=== PATIENT | female | born 1925 | race Caucasian/White ===

== ENCOUNTER 2016-12-11 21:27 | Emergency (ER) | payer MEDICARE, BC ==
[2016-12-11 22:11] LABS: CHLORIDE,CL 92 mmol/L (101-111); SODIUM,NA 132 mmol/L (135-145)
[2016-12-11 22:57] VITALS: BP 167/60
--- NOTE | 2016-12-12 01:04 | EDM.PDOC ---
ED HPI NEURO - General Chief Complaint: Neuro Symptoms/Deficits Stated Complaint: BY AMBULANCE Time Seen by Provider: 12/11/16 21:35 Source of Information: Reports: EMS History Limitations: Reports: Altered mental status - History of Present Illness INITIAL COMMENTS - FREE TEXT/NARRATIVE: ED via [facility] from Assisted living. Reported to be unresponsive when staff went to give bedtime medications - Related Data Allergies/ADRs: Allergies Allergy/AdvReac Type Severity Reaction Status Date / Time amoxicillin trihydrate Allergy Nausea and Verified 11/06/16 14:35 [From Augmentin] Vomiting erythromycin base Allergy unkown Verified 11/06/16 14:35 [Erythromycin Base] fluocinonide Allergy unkown Verified 11/06/16 14:35 metformin Allergy Nausea and Verified 11/06/16 14:35 Vomiting Penicillins Allergy Nausea and Verified 11/06/16 14:35 Vomiting potassium clavulanate Allergy Nausea and Verified 11/06/16 14:35 [From Augmentin] Vomiting quinapril Allergy Cannot Verified 11/06/16 14:35 Remember rofecoxib Allergy unkown Verified 11/06/16 14:35 Sulfa (Sulfonamide Allergy Nausea and Verified 11/06/16 14:35 Antibiotics) Vomiting sulfamethoxazole Allergy Cannot Verified 11/06/16 14:35 [From Bactrim] Remember trimethoprim [From Bactrim] Allergy Cannot Verified 11/06/16 14:35 Remember Home Meds: Home Meds Nitroglycerin 0.4 mg SL ASDIRECTED PRN 10/10/13 [History] Rosuvastatin [Crestor] 20 mg PO DAILY 10/10/13 [History] Ubidecarenone [Coenzyme Q10] 200 mg PO DAILY 10/10/13 [History] Cranberry Extract [Cranberry] 500 mg PO DAILY 04/04/16 [History] Insulin Glarg,Human.Rec.Analog [LantUS Solostar] 10 units SUBCUT QAM 04/04/16 [ History] Ipratropium [place] 2 sprays NASBOTH DAILY 04/04/16 [History] Losartan Potassium 50 mg PO DAILY 04/04/16 [History] Metoprolol Succinate 150 mg PO DAILY 04/04/16 [History] Pantoprazole [Protonix] 40 mg PO DAILY 04/04/16 [History] SitaGLIPtin [Januvia] 100 mg PO DAILY 06/04/16 [History] glipiZIDE [Glucotrol XL] 10 mg PO DAILY 06/04/16 [History] Aspirin [Halfprin] 81 mg PO BRK 11/06/16 [History] Calcium Carb/Vitamin D3/Vit K1 [Viactiv Soft Chew] 1 tab PO DAILY 11/06/16 [ History] Donepezil [Aricept] 10 mg PO DAILY 11/06/16 [History] Loratadine [Claritin] 10 mg PO DAILY 11/06/16 [History] Furosemide [Lasix] 20 mg PO DAILY #30 tablet 11/08/16 [Rx] Levofloxacin 500 mg PO DAILY #7 tablet 11/08/16 [Rx] Potassium Chloride [Klor-Con 10] 20 meq PO WITHBREAKFAST #30 tab.er 11/08/16 [Rx ] Past Medical History HEENT History: Reports: Cataract Cardiovascular History: Reports: Automatic implantable cardioverter defibrillators, Bypass, CAD, High cholesterol, Hypertension Respiratory History: Reports: None Gastrointestinal History: Reports: GERD Other Gastrointestinal History: gallbladder removed Genitourinary History: Reports: UTI, recurrent [employer] History: Reports: None Musculoskeletal History: Reports: Arthritis Neurological History: Reports: None Psychiatric History: Reports: None, Dementia, Hallucinations Endocrine/Metabolic History: Reports: Diabetes, type II Hematologic History: Reports: Anemia Immunologic History: Reports: None Oncologic (Cancer) History: Reports: None Dermatologic History: Reports: None - Infectious Disease History Infectious Disease History: Reports: None - Past Surgical History Head Surgeries/Procedures: Reports: None Cardiovascular Surgical History: Reports: Coronary artery bypass, Pacer Social & Family History - Family History Family Medical History: Unobtainable - Tobacco Use Smoking Status *Q: Unknown Ever Smoked Second Hand Smoke Exposure: No - Caffeine Use Caffeine Use: Reports: Other Other Caffeine Use: unknown - Recreational Drug Use Recreational Drug Use: No - Living Situation & Occupation Living situation: Reports: assisted living ED ROS GENERAL - Review of Systems Review Of Systems: Unable To Obtain ED EXAM, NEURO - Physical Exam Exam: See Below Exam Limited By: No limitations General Appearance: lethargic (on arrival. squintling eyes against light. some resistance of patient while undressing.) Eye Exam: bilateral eye: EOMI, PERRL (2mm) Ears: normal external exam Nose: normal inspection Throat/Mouth: Normal inspection, Normal lips, Normal teeth, Perioral cyanosis Head Exam: normocephalic Neck: normal inspection Respiratory/Chest: no respiratory distress, lungs clear, normal breath sounds Cardiovascular: normal peripheral pulses, regular rate, rhythm, no edema GI/Abdominal: normal bowel sounds Neurological: withdraws to pain, other (breif peried decreased level of consciousness, few minutes increased arousal moving all extremities) Back Exam: normal inspection Extremities: normal inspection Skin Exam: Warm, Dry, Intact, Normal color, No rash Course - Vital Signs Last Recorded V/S: Last Vital Signs Temp 97.9 F 12/11/16 21:35 Pulse 66 12/11/16 21:35 Resp 18 12/11/16 21:35 BP 167/60 H 12/11/16 21:35 Pulse Ox 95 12/11/16 21:35 - Orders/Labs/Meds Orders: Active Orders 24 hr Category Date Time Status Glucose [Blood Glucose Check, Bedside] [RC] ONETIME Care 12/12/16 00:10 Active CULTURE BLOOD [BC] Stat Lab 12/11/16 21:40 Results CULTURE BLOOD [BC] Stat Lab 12/11/16 21:45 Received Blood Culture x2 Reflex Set [OM.PC] Stat Oth 12/11/16 21:38 Ordered Code Status [Resuscitation Status] Stat Resus Stat 12/12/16 04:00 Ordered Labs: Laboratory Tests 12/11/16 12/11/16 12/11/16 Range/Units 21:45 21:45 21:45 WBC 7.9 (5.0-10.0) 10^3/uL RBC 4.25 (4.2-5.4) 10^6/uL Hgb 11.6 L (12.0-16.0) g/dL Hct 35.2 L (37.0-47.0) % MCV 82.8 (80-100) fL MCH 27.3 (27.0-34.0) pg MCHC 33.0 (33.0-35.0) g/dL Plt Count 196 (150-450) 10^3/uL Neut % (Auto) 70.1 (42.2-75.2) % Lymph % (Auto) 14.1 L (20.5-50.1) % Nelson % (Auto) 12.4 H (2-8) % Eos % (Auto) 2.9 (1.0-3.0) % Baso % (Auto) 0.5 (0.0-1.0) % Sodium 132 L (135-145) mmol/L Potassium 4.6 (3.6-5.0) mmol/L Chloride 92 L (101-111) mmol/L Carbon Dioxide 32.0 H (21.0-31.0) mmol/L Anion Gap 12.6 BUN 28 H (7-18) mg/dL Creatinine 0.8 (0.6-1.3) mg/dL Est Cr Clr Drug Dosing TNP Estimated GFR (MDRD) > 60 BUN/Creatinine Ratio 35.00 Glucose 246 H (74-105) mg/dL POC Glucose (83-110) mg/dl Lactic Acid 1.6 (0.5-2.2) mmol/L Calcium 9.0 (8.4-10.2) mg/dl Magnesium 2.1 (1.8-2.5) mg/dL Total Bilirubin 0.5 (0.2-1.0) mg/dL AST 22 (10-42) IU/L ALT 17 (10-60) IU/L Alkaline Phosphatase 70 (42-121) IU/L Troponin I < 0.02 (0.00-0.02) ng/ml B-Natriuretic Peptide 458 H (0-100) pg/ml Total Protein 7.0 (6.7-8.2) g/dl Albumin 3.7 (3.2-5.5) g/dl Globulin 3.3 Albumin/Globulin Ratio 1.12 Urine Color (YELLOW) Urine Appearance (CLEAR) Urine pH (5.0-9.0) Ur Specific [place] (1.005-1.030) Urine Protein (NEGATIVE) Urine Glucose (UA) (NEGATIVE) Urine Ketones (NEGATIVE) Urine Occult Blood (NEGATIVE) Urine Nitrite (NEGATIVE) Urine Bilirubin (NEGATIVE) Urine Urobilinogen (0.2-1.0) mg/dL Ur Leukocyte Esterase (NEGATIVE) Urine RBC /HPF Urine WBC (0-5/HPF) /HPF Ur Epithelial Cells /HPF Urine Bacteria (0-FEW/HPF) /HPF Urine Mucus /LPF Ketones Negative 12/11/16 12/12/16 Range/Units 22:37 00:21 WBC (5.0-10.0) 10^3/uL RBC (4.2-5.4) 10^6/uL Hgb (12.0-16.0) g/dL Hct (37.0-47.0) % MCV (80-100) fL MCH (27.0-34.0) pg MCHC (33.0-35.0) g/dL Plt Count (150-450) 10^3/uL Neut % (Auto) (42.2-75.2) % Lymph % (Auto) (20.5-50.1) % Nelson % (Auto) (2-8) % Eos % (Auto) (1.0-3.0) % Baso % (Auto) (0.0-1.0) % Sodium (135-145) mmol/L Potassium (3.6-5.0) mmol/L Chloride (101-111) mmol/L Carbon Dioxide (21.0-31.0) mmol/L Anion Gap BUN (7-18) mg/dL Creatinine (0.6-1.3) mg/dL Est Cr Clr Drug Dosing Estimated GFR (MDRD) BUN/Creatinine Ratio Glucose (74-105) mg/dL POC Glucose 192 H (83-110) mg/dl Lactic Acid (0.5-2.2) mmol/L Calcium (8.4-10.2) mg/dl Magnesium (1.8-2.5) mg/dL Total Bilirubin (0.2-1.0) mg/dL AST (10-42) IU/L ALT (10-60) IU/L Alkaline Phosphatase (42-121) IU/L Troponin I (0.00-0.02) ng/ml B-Natriuretic Peptide (0-100) pg/ml Total Protein (6.7-8.2) g/dl Albumin (3.2-5.5) g/dl Globulin Albumin/Globulin Ratio Urine Color Yellow (YELLOW) Urine Appearance Clear (CLEAR) Urine pH 5.5 (5.0-9.0) Ur Specific [place] 1.015 (1.005-1.030) Urine Protein Negative (NEGATIVE) Urine Glucose (UA) 100 H (NEGATIVE) Urine Ketones Negative (NEGATIVE) Urine Occult Blood Trace-intact H (NEGATIVE) Urine Nitrite Negative (NEGATIVE) Urine Bilirubin Negative (NEGATIVE) Urine Urobilinogen 0.2 (0.2-1.0) mg/dL Ur Leukocyte Esterase Negative (NEGATIVE) Urine RBC 0-5 /HPF Urine WBC 0-5 (0-5/HPF) /HPF Ur Epithelial Cells Rare /HPF Urine Bacteria Rare (0-FEW/HPF) /HPF Urine Mucus Moderate H /LPF Ketones - Re-Assessments/Exams Free Text/Narrative Re-Assessment/Exam: increasing arousal during initial evaluation. Moving all extremities, equal strength. Speech clear. Some responses appropriate. Generally cooperative, able to follow command but confused. Vitals remain stable . 12/12/16 04:01 Daughter here desire to take mother home , Will follow up in clinic , verbal understanding to follow sooner if any changes noted. Daughter notes patient is usually in bed sleeping soundly by 7pm and tonUsersnap meds were being brought after 830. Level of confusion usual for patient this time of night and in different environments. Code status discussed with daughter. Requests DNR/ DNI status be noted. Discussed recommendation for neuro consult. Daughter declines transfer tonight, wants to take patient home, Will return if any change in sx also will follow with clinic on Tuesday. 12/12/16 07:03 Departure - Departure Time of Disposition: 03:19 Disposition: Home, Self-Care 01 Condition: undetermined Clinical Impression: Altered level of consciousness Dementia Qualifiers: Dementia type: unspecified type Dementia behavioral disturbance: without behavioral disturbance Qualified Code(s): F03.90 - Unspecified dementia without behavioral disturbance Instructions: Seizure, Adult, [id number] Referrals: Emerson Green, [facility] [Primary Care Provider] - Forms: ED Department Discharge Additional Instructions: monitor follow up in clinic tuesday, sooner if any change in behavior or weakness - My Orders Last 24 Hours: My Active Orders 12/11/16 21:38 Blood Culture x2 Reflex Set [OM.PC] Stat 12/11/16 21:40 CULTURE BLOOD [BC] Stat 12/11/16 21:45 CULTURE BLOOD [BC] Stat 12/12/16 00:10 Glucose [Blood Glucose Check, Bedside] [RC] ONETIME 12/12/16 04:00 Code Status [Resuscitation Status] Stat - Assessment/Plan Last 24 Hours: My Active Orders 12/11/16 21:38 Blood Culture x2 Reflex Set [OM.PC] Stat 12/11/16 21:40 CULTURE BLOOD [BC] Stat 12/11/16 21:45 CULTURE BLOOD [BC] Stat 12/12/16 00:10 Glucose [Blood Glucose Check, Bedside] [RC] ONETIME 12/12/16 04:00 Code Status [Resuscitation Status] Stat
--- NOTE | 2017-01-24 12:49 | EKG ---
12/11/2016 - MARILYN BRIAN - Twelve-lead EKG shows atrial paced rhythm. No further interpretation could be made secondary to the paced rhythm. [facility] /[id number]
== END 2016-12-12 03:35 | disposition home or self-care (01) ==
LOC: DL.ED 21:27
DX: R41.82 Altered mental status, unspecified (principal); F03.90 Unspecified dementia, unspecified severity, without behavioral disturbance, psychotic disturbance, mood disturbance, and anxiety; Z88.1 Allergy status to other antibiotic agents; Z88.0 Allergy status to penicillin; Z88.8 Allergy status to other drugs, medicaments and biological substances; Z88.2 Allergy status to sulfonamides; Z79.82 Long term (current) use of aspirin; Z79.4 Long term (current) use of insulin; Z79.899 Other long term (current) drug therapy; I25.810 Atherosclerosis of coronary artery bypass graft(s) without angina pectoris; I10 Essential (primary) hypertension; E78.00 Pure hypercholesterolemia, unspecified; Z95.810 Presence of automatic (implantable) cardiac defibrillator; K21.9 Gastro-esophageal reflux disease without esophagitis; M19.90 Unspecified osteoarthritis, unspecified site; E11.9 Type 2 diabetes mellitus without complications; D64.9 Anemia, unspecified
CPT/HCPCS: 36415; 51701; 70450; 71010; 80053; 81001; 82009; 82962; 83605; 83735; 83880; 84484; 85025; 87040; 99284; 99285

== ENCOUNTER 2017-04-03 10:07 | Emergency (ER) | payer MEDICARE, BC ==
[2017-04-03] MEDS ORDERED: 50% Dextrose in Water 50 ML Syringe IVPUSH ONE (10:09)
[2017-04-03] MEDS ORDERED: Sodium Chloride 0.9% 10 ML Syringe FLUSH PRN (10:11)
[2017-04-03 11:11] VITALS: BP 155/75
[2017-04-03 11:28] LABS: CHLORIDE,CL 96 mmol/L (101-111); SODIUM,NA 136 mmol/L (135-145)
--- NOTE | 2017-04-03 12:23 | EDM.PDOC ---
Scribed by Gabriela Porras 04/03/17 1222 for James Alston MD ED HPI GENERAL MEDICAL PROBLEM - General Chief Complaint: Neurological Problem Time Seen by Provider: 04/03/17 10:10 Source of Information: Reports: EMS, RN, RN Notes Reviewed History Limitations: Reports: Other (unresponsive) - History of Present Illness INITIAL COMMENTS - FREE TEXT/NARRATIVE: Arrives from [facility] by ambulance unresponsive. History per EMS that patient woke [facility] with agitation and was combative, then suddenly became unresponsive. Blood sugar 82. Patient unable to provide any history. Snf documents Onset: Today Severity: Severe Improves with: Reports: None Worsens with: Reports: None Associated Symptoms: Reports: No Other Symptoms - Related Data Allergies Allergy/AdvReac Type Severity Reaction Status Date / Time amoxicillin trihydrate Allergy Nausea and Verified 11/06/16 14:35 [From Augmentin] Vomiting erythromycin base Allergy unkown Verified 11/06/16 14:35 [Erythromycin Base] fluocinonide Allergy unkown Verified 11/06/16 14:35 metformin Allergy Nausea and Verified 11/06/16 14:35 Vomiting Penicillins Allergy Nausea and Verified 11/06/16 14:35 Vomiting potassium clavulanate Allergy Nausea and Verified 11/06/16 14:35 [From Augmentin] Vomiting quinapril Allergy Cannot Verified 11/06/16 14:35 Remember rofecoxib Allergy unkown Verified 11/06/16 14:35 Sulfa (Sulfonamide Allergy Nausea and Verified 11/06/16 14:35 Antibiotics) Vomiting sulfamethoxazole Allergy Cannot Verified 11/06/16 14:35 [From Bactrim] Remember trimethoprim [From Bactrim] Allergy Cannot Verified 11/06/16 14:35 Remember Home Meds: Home Meds Nitroglycerin 0.4 mg SL ASDIRECTED PRN 10/10/13 [History] Rosuvastatin [Crestor] 20 mg PO DAILY 10/10/13 [History] Ubidecarenone [Coenzyme Q10] 200 mg PO DAILY 10/10/13 [History] Cranberry Extract [Cranberry] 500 mg PO DAILY 04/04/16 [History] Insulin Glarg,Human.Rec.Analog [LantUS Solostar] 10 units SUBCUT QAM 04/04/16 [ History] Ipratropium [place] 2 sprays NASBOTH DAILY 04/04/16 [History] Losartan Potassium 50 mg PO DAILY 04/04/16 [History] Metoprolol Succinate 150 mg PO DAILY 04/04/16 [History] Pantoprazole [ProTONIX] 40 mg PO DAILY 04/04/16 [History] SitaGLIPtin [Januvia] 100 mg PO DAILY 06/04/16 [History] glipiZIDE [Glucotrol XL] 10 mg PO DAILY 06/04/16 [History] Aspirin [Halfprin] 81 mg PO BRK 11/06/16 [History] Calcium Carb/Vitamin D3/Vit K1 [Viactiv Soft Chew] 1 tab PO DAILY 11/06/16 [ History] Donepezil [Aricept] 10 mg PO DAILY 11/06/16 [History] Loratadine [Claritin] 10 mg PO DAILY 11/06/16 [History] Furosemide [Lasix] 20 mg PO DAILY #30 tablet 11/08/16 [Rx] Levofloxacin 500 mg PO DAILY #7 tablet 11/08/16 [Rx] Potassium Chloride [Klor-Con 10] 20 meq PO WITHBREAKFAST #30 tab.er 11/08/16 [Rx ] Past Medical History HEENT History: Reports: Cataract Cardiovascular History: Reports: Automatic Implantable Cardioverter Defibrillators, Bypass, CAD, Heart Failure, High Cholesterol, Hypertension Respiratory History: Reports: None Gastrointestinal History: Reports: GERD Other Gastrointestinal History: gallbladder removed Genitourinary History: Reports: UTI, Recurrent [employer] History: Reports: None Musculoskeletal History: Reports: Arthritis Neurological History: Reports: None Psychiatric History: Reports: None, Dementia, Hallucinations Endocrine/Metabolic History: Reports: Diabetes, Type II, Other (See Below) (DKA) Hematologic History: Reports: Anemia Immunologic History: Reports: None Oncologic (Cancer) History: Reports: None Dermatologic History: Reports: None - Infectious Disease History Infectious Disease History: Reports: None - Past Surgical History HEENT Surgical History: Reports: Cataract Surgery Cardiovascular Surgical History: Reports: Coronary Artery Bypass, Pacer Musculoskeletal Surgical History: Reports: Other (See Below) Social & Family History - Family History Family Medical History: Unobtainable - Tobacco Use Smoking Status *Q: Unknown Ever Smoked Second Hand Smoke Exposure: No - Caffeine Use Caffeine Use: Reports: Coffee - Recreational Drug Use Recreational Drug Use: No - Living Situation & Occupation Living situation: Reports: Assisted Living ED ROS GENERAL - Review of Systems Review Of Systems: Unable To Obtain (due to unresponsive.) ED EXAM, GENERAL - Physical Exam Exam: See Below Exam Limited By: Other (unresponsive) General Appearance: Other (unresponsive elderly appearing female.) Eye Exam: Bilateral Eye: Other (unequal pupils, less then 2mm.) Ears: Normal External Exam Nose: Normal Inspection Throat/Mouth: Normal Inspection Head: Atraumatic, Normocephalic Neck: Normal Inspection, Supple, Non-Tender, Full Range of Motion Respiratory/Chest: Decreased Breath Sounds (, lungs clear.) Cardiovascular: Normal Peripheral Pulses, Regular Rate, Rhythm, No Edema, No Gallop, No JVD, No Murmur, No Rub GI/Abdominal: Normal Bowel Sounds, Soft, Non-Tender, No Organomegaly, No Distention, No Abnormal Bruit, No Mass (Female) Exam: Deferred Rectal (Female) Exam: Deferred Back Exam: Other (no obvious injuries.) Extremities: Other (no obvious injuries.) Neurological: Unresponsive Skin Exam: Warm, Dry, Intact, Normal Color, No Rash EKG INTERPRETATION EKG Date: 04/03/17 Time: 10:33 Rhythm: Other (paced rhythm) Rate (Beats/Min): 60 Course - Vital Signs Last Recorded V/S: Last Vital Signs Temp 36.2 C 04/03/17 10:07 Pulse 93 04/03/17 10:07 Resp 16 04/03/17 10:07 BP 155/75 H 04/03/17 10:07 Pulse Ox 96 04/03/17 10:07 - Orders/Labs/Meds Orders: Active Orders 24 hr Category Date Time Status Blood Glucose Check, Bedside [RC] ONETIME Care 04/03/17 10:13 Active Blood Glucose Check, Bedside [RC] ONETIME Care 04/03/17 10:13 Active EKG 12 Lead [EKG Documentation Completion] [RC] STAT Care 04/03/17 10:11 Active Insert Osman Catheter [Insert Urinary Catheter] [OM.PC] Care 04/03/17 10:30 Ordered Q24H Peripheral IV Care [RC] . DIRECTED Care 04/03/17 10:12 Active Telemetry Monitoring [Cardiac Monitoring] [RC] . Care 04/03/17 10:13 Active DIRECTED Urinary Catheter Assessment [RC] ASDIRECTED Care 04/03/17 10:29 Active CULTURE BLOOD [BC] Stat Lab 04/03/17 10:57 Received CULTURE BLOOD [BC] Stat Lab 04/03/17 11:04 Results Sodium Chloride 0.9% [Saline Flush] Med 04/03/17 10:11 Active 10 ml FLUSH ASDIRECTED PRN Blood Culture x2 Reflex Set [OM.PC] Stat Ot 04/03/17 10:12 Ordered Peripheral IV Insertion Adult [OM.PC] Stat Ot 04/03/17 10:11 Ordered Medication Orders Sodium Chloride (Saline Flush) 10 ml FLUSH ASDIRECTED PRN PRN Reason: Keep Vein Open Labs: Laboratory Tests 04/03/17 04/03/17 04/03/17 Range/Units 10:45 10:57 10:57 WBC 7.2 (5.0-10.0) 10^3/uL RBC 4.08 L (4.2-5.4) 10^6/uL Hgb 11.2 L (12.0-16.0) g/dL Hct 34.5 L (37.0-47.0) % MCV 84.6 (80-100) fL MCH 27.5 (27.0-34.0) pg MCHC 32.5 L (33.0-35.0) g/dL Plt Count 188 (150-450) 10^3/uL Neut % (Auto) 79.2 H (42.2-75.2) % Lymph % (Auto) 9.3 L (20.5-50.1) % [place] % (Auto) 8.2 H (2-8) % Eos % (Auto) 2.9 (1.0-3.0) % Baso % (Auto) 0.4 (0.0-1.0) % PT 11.0 (9.0-12.0) SEC INR 1.1 (0.9-1.2) APTT 23.6 (22.0-34.0) SEC Sodium (135-145) mmol/L Potassium (3.6-5.0) mmol/L Chloride (101-111) mmol/L Carbon Dioxide (21.0-31.0) mmol/L Anion Gap BUN (7-18) mg/dL Creatinine (0.6-1.3) mg/dL Est Cr Clr Drug Dosing mL/min Estimated GFR (MDRD) BUN/Creatinine Ratio Glucose (74-105) mg/dL POC Glucose 126 H (83-110) mg/dl Lactic Acid (0.5-2.2) mmol/L Calcium (8.4-10.2) mg/dl Total Bilirubin (0.2-1.0) mg/dL AST (10-42) IU/L ALT (10-60) IU/L Alkaline Phosphatase (42-121) IU/L Ammonia (11-35) umol/L Creatine Kinase (26-174) IU/L Troponin I (0.00-0.02) ng/ml B-Natriuretic Peptide (0-100) pg/ml Total Protein (6.7-8.2) g/dl Albumin (3.2-5.5) g/dl Globulin Albumin/Globulin Ratio Urine Color (YELLOW) Urine Appearance (CLEAR) Urine pH (5.0-9.0) Ur Specific [place] (1.005-1.030) Urine Protein (NEGATIVE) Urine Glucose (UA) (NEGATIVE) Urine Ketones (NEGATIVE) Urine Occult Blood (NEGATIVE) Urine Nitrite (NEGATIVE) Urine Bilirubin (NEGATIVE) Urine Urobilinogen (0.2-1.0) mg/dL Ur Leukocyte Esterase (NEGATIVE) Urine RBC /HPF Urine WBC (0-5/HPF) /HPF Ur Epithelial Cells /HPF Urine Bacteria (0-FEW/HPF) /HPF Urine Opiates Screen (NEGATIVE) Ur Oxycodone Screen (NEGATIVE) Urine Methadone Screen (NEGATIVE) Ur Barbiturates Screen (NEGATIVE) U Tricyclic Antidepress (NEGATIVE) Ur Phencyclidine Scrn (NEGATIVE) Ur Amphetamine Screen (NEGATIVE) U Methamphetamines Scrn (NEGATIVE) Urine MDMA Screen (NEGATIVE) U Benzodiazepines Scrn (NEGATIVE) Urine Cocaine Screen (NEGATIVE) U Marijuana (THC) Screen (NEGATIVE) Ethyl Alcohol mg/dL Ketones 04/03/17 04/03/17 04/03/17 Range/Units 10:57 10:57 10:57 WBC (5.0-10.0) 10^3/uL RBC (4.2-5.4) 10^6/uL Hgb (12.0-16.0) g/dL Hct (37.0-47.0) % MCV (80-100) fL MCH (27.0-34.0) pg MCHC (33.0-35.0) g/dL Plt Count (150-450) 10^3/uL Neut % (Auto) (42.2-75.2) % Lymph % (Auto) (20.5-50.1) % Mcdowell % (Auto) (2-8) % Eos % (Auto) (1.0-3.0) % Baso % (Auto) (0.0-1.0) % PT (9.0-12.0) SEC INR (0.9-1.2) APTT (22.0-34.0) SEC Sodium 136 (135-145) mmol/L Potassium 4.6 (3.6-5.0) mmol/L Chloride 96 L (101-111) mmol/L Carbon Dioxide 30.0 (21.0-31.0) mmol/L Anion Gap 14.6 BUN 18 (7-18) mg/dL Creatinine 0.9 (0.6-1.3) mg/dL Est Cr Clr Drug Dosing 37.93 mL/min Estimated GFR (MDRD) 59 BUN/Creatinine Ratio 20.00 Glucose 212 H (74-105) mg/dL POC Glucose (83-110) mg/dl Lactic Acid 0.7 (0.5-2.2) mmol/L Calcium 8.7 (8.4-10.2) mg/dl Total Bilirubin 0.6 (0.2-1.0) mg/dL AST 18 (10-42) IU/L ALT 12 (10-60) IU/L Alkaline Phosphatase 63 (42-121) IU/L Ammonia < 9 L (11-35) umol/L Creatine Kinase 82 (26-174) IU/L Troponin I 0.02 (0.00-0.02) ng/ml B-Natriuretic Peptide 623 H (0-100) pg/ml Total Protein 7.0 (6.7-8.2) g/dl Albumin 3.6 (3.2-5.5) g/dl Globulin 3.4 Albumin/Globulin Ratio 1.06 Urine Color (YELLOW) Urine Appearance (CLEAR) Urine pH (5.0-9.0) Ur Specific [place] (1.005-1.030) Urine Protein (NEGATIVE) Urine Glucose (UA) (NEGATIVE) Urine Ketones (NEGATIVE) Urine Occult Blood (NEGATIVE) Urine Nitrite (NEGATIVE) Urine Bilirubin (NEGATIVE) Urine Urobilinogen (0.2-1.0) mg/dL Ur Leukocyte Esterase (NEGATIVE) Urine RBC /HPF Urine WBC (0-5/HPF) /HPF Ur Epithelial Cells /HPF Urine Bacteria (0-FEW/HPF) /HPF Urine Opiates Screen (NEGATIVE) Ur Oxycodone Screen (NEGATIVE) Urine Methadone Screen (NEGATIVE) Ur Barbiturates Screen (NEGATIVE) U Tricyclic Antidepress (NEGATIVE) Ur Phencyclidine Scrn (NEGATIVE) Ur Amphetamine Screen (NEGATIVE) U Methamphetamines Scrn (NEGATIVE) Urine MDMA Screen (NEGATIVE) U Benzodiazepines Scrn (NEGATIVE) Urine Cocaine Screen (NEGATIVE) U Marijuana (THC) Screen (NEGATIVE) Ethyl Alcohol < 5 mg/dL Ketones Negative 04/03/17 04/03/17 Range/Units 11:22 11:22 WBC (5.0-10.0) 10^3/uL RBC (4.2-5.4) 10^6/uL Hgb (12.0-16.0) g/dL Hct (37.0-47.0) % MCV (80-100) fL MCH (27.0-34.0) pg MCHC (33.0-35.0) g/dL Plt Count (150-450) 10^3/uL Neut % (Auto) (42.2-75.2) % Lymph % (Auto) (20.5-50.1) % [place] % (Auto) (2-8) % Eos % (Auto) (1.0-3.0) % Baso % (Auto) (0.0-1.0) % PT (9.0-12.0) SEC INR (0.9-1.2) APTT (22.0-34.0) SEC Sodium (135-145) mmol/L Potassium (3.6-5.0) mmol/L Chloride (101-111) mmol/L Carbon Dioxide (21.0-31.0) mmol/L Anion Gap BUN (7-18) mg/dL Creatinine (0.6-1.3) mg/dL Est Cr Clr Drug Dosing mL/min Estimated GFR (MDRD) BUN/Creatinine Ratio Glucose (74-105) mg/dL POC Glucose (83-110) mg/dl Lactic Acid (0.5-2.2) mmol/L Calcium (8.4-10.2) mg/dl Total Bilirubin (0.2-1.0) mg/dL AST (10-42) IU/L ALT (10-60) IU/L Alkaline Phosphatase (42-121) IU/L Ammonia (11-35) umol/L Creatine Kinase (26-174) IU/L Troponin I (0.00-0.02) ng/ml B-Natriuretic Peptide (0-100) pg/ml Total Protein (6.7-8.2) g/dl Albumin (3.2-5.5) g/dl Globulin Albumin/Globulin Ratio Urine Color Yellow (YELLOW) Urine Appearance Cloudy (CLEAR) Urine pH 7.0 (5.0-9.0) Ur Specific [place] 1.015 (1.005-1.030) Urine Protein Negative (NEGATIVE) Urine Glucose (UA) 250 H (NEGATIVE) Urine Ketones Negative (NEGATIVE) Urine Occult Blood Trace-intact H (NEGATIVE) Urine Nitrite Negative (NEGATIVE) Urine Bilirubin Negative (NEGATIVE) Urine Urobilinogen 0.2 (0.2-1.0) mg/dL Ur Leukocyte Esterase Moderate H (NEGATIVE) Urine RBC 0-5 /HPF Urine WBC 50-75 H (0-5/HPF) /HPF Ur Epithelial Cells Rare /HPF Urine Bacteria Rare (0-FEW/HPF) /HPF Urine Opiates Screen Negative (NEGATIVE) Ur Oxycodone Screen Negative (NEGATIVE) Urine Methadone Screen Negative (NEGATIVE) Ur Barbiturates Screen Negative (NEGATIVE) U Tricyclic Antidepress Negative (NEGATIVE) Ur Phencyclidine Scrn Negative (NEGATIVE) Ur Amphetamine Screen Negative (NEGATIVE) U Methamphetamines Scrn Negative (NEGATIVE) Urine MDMA Screen Negative (NEGATIVE) U Benzodiazepines Scrn Negative (NEGATIVE) Urine Cocaine Screen Negative (NEGATIVE) U Marijuana (THC) Screen Negative (NEGATIVE) Ethyl Alcohol mg/dL Ketones Meds: Medications Generic Name Dose Route Start Last Admin Trade Name Freq PRN Reason Stop Dose Admin Sodium Chloride 10 ml 04/03/17 10:11 Saline Flush FLUSH ASDIRECTED PRN Keep Vein Open Discontinued Medications Generic Name Dose Route Start Last Admin Trade Name Freq PRN Reason Stop Dose Admin Dextrose/Water 50 ml 04/03/17 10:09 04/03/17 10:10 Dextrose 50% In Water IVPUSH 04/03/17 10:10 50 ml ONETIME ONE Administration - Radiology Interpretation Free Text/Narrative:: CT head per rad report: No acute cerebral hemorrhage or edema. Small vessel ischemic disease and atrophy. Chest x-ray: Per rad report reveals no change left parenchymal pleural disease. Departure - Departure Time of Disposition: 12:19 Disposition: Home, Self-Care 01 Condition: Good Clinical Impression: Hypoglycemia - Discharge Information Instructions: Hypoglycemia Forms: ED Department Discharge Additional Instructions: Monitor blood sugar today. Eat lunch when you return to your apartment. Follow up in the clinic in the 3-5 days by your doctor. Return to ER if worse at any time. - My Orders Last 24 Hours: My Active Orders 04/03/17 10:11 EKG 12 Lead [EKG Documentation Completion] [RC] STAT Sodium Chloride 0.9% [Saline Flush] 10 ml FLUSH ASDIRECTED PRN Peripheral IV Insertion Adult [OM.PC] Stat 04/03/17 10:12 Peripheral IV Care [RC] . DIRECTED Blood Culture x2 Reflex Set [OM.PC] Stat 04/03/17 10:13 Blood Glucose Check, Bedside [RC] ONETIME Blood Glucose Check, Bedside [RC] ONETIME Telemetry Monitoring [Cardiac Monitoring] [RC] . DIRECTED 04/03/17 10:29 Urinary Catheter Assessment [RC] ASDIRECTED 04/03/17 10:30 Insert Osman Catheter [Insert Urinary Catheter] [OM.PC] Q24H 04/03/17 10:57 CULTURE BLOOD [BC] Stat 04/03/17 11:04 CULTURE BLOOD [BC] Stat - Assessment/Plan Last 24 Hours: My Active Orders 04/03/17 10:11 EKG 12 Lead [EKG Documentation Completion] [RC] STAT Sodium Chloride 0.9% [Saline Flush] 10 ml FLUSH ASDIRECTED PRN Peripheral IV Insertion Adult [OM.PC] Stat 04/03/17 10:12 Peripheral IV Care [RC] . DIRECTED Blood Culture x2 Reflex Set [OM.PC] Stat 04/03/17 10:13 Blood Glucose Check, Bedside [RC] ONETIME Blood Glucose Check, Bedside [RC] ONETIME Telemetry Monitoring [Cardiac Monitoring] [RC] . DIRECTED 04/03/17 10:29 Urinary Catheter Assessment [RC] ASDIRECTED 04/03/17 10:30 Insert Osman Catheter [Insert Urinary Catheter] [OM.PC] Q24H 04/03/17 10:57 CULTURE BLOOD [BC] Stat 04/03/17 11:04 CULTURE BLOOD [BC] Stat I have read and agree with the documentation that has been completed regarding this visit. By signing this record, I attest that the documentation was completed in my physical presence and is an accurate record of the encounter.
--- NOTE | 2017-04-06 13:11 | EKG ---
04/03/2017- MARILYN BRIAN - EKG per my reading shows atrial paced rhythm at the rate of 60. No acute ST changes. [facility] /[id number]
== END 2017-04-03 12:40 | disposition home or self-care (01) ==
LOC: DL.ED 10:07
DX: E11.649 Type 2 diabetes mellitus with hypoglycemia without coma (principal); K21.9 Gastro-esophageal reflux disease without esophagitis; M19.90 Unspecified osteoarthritis, unspecified site; D64.9 Anemia, unspecified; I11.0 Hypertensive heart disease with heart failure; I50.9 Heart failure, unspecified; E78.00 Pure hypercholesterolemia, unspecified; Z98.49 Cataract extraction status, unspecified eye; Z88.1 Allergy status to other antibiotic agents; Z88.0 Allergy status to penicillin; Z88.8 Allergy status to other drugs, medicaments and biological substances; Z88.2 Allergy status to sulfonamides; Z79.4 Long term (current) use of insulin; Z79.899 Other long term (current) drug therapy; Z79.82 Long term (current) use of aspirin; Z87.440 Personal history of urinary (tract) infections
CPT/HCPCS: 36415; 70450; 71010; 80053; 80305; 81001; 82009; 82140; 82550; 82962; 83605; 83880; 84484; 85025; 85610; 85730; 87040; 93005; 93010; 96374; 99284; G0480; J7060

== ENCOUNTER 2017-09-09 12:20 | Emergency (ER) | payer MEDICARE, BC ==
--- NOTE | 2017-09-09 12:33 | EDM.PDOC ---
ED HPI GENERAL MEDICAL PROBLEM - General Chief Complaint: Diabetic Complaint Stated Complaint: UNRESPONSIVE. FROM [facility] Time Seen by Provider: 09/09/17 12:31 Source of Information: Reports: EMS, EMS Notes Reviewed, Family, RN, RN Notes Reviewed - History of Present Illness INITIAL COMMENTS - FREE TEXT/NARRATIVE: Pt presents to the ER per [facility] from [facility]. Nurse reports patient was unresponsive when they went to take her to dinner. EMS reports the patient is diabetic and is known to sneak jelly packets at times. Pt responds only at times to verbal stimuli, at times to painful stimuli. EMS reports BS of >500 en route to the ER. Pt was found in bed, no evidence of trauma. Onset: Today, Sudden Treatments HEAD BUTLER: Reports: IV/IO - Related Data Allergies Allergy/AdvReac Type Severity Reaction Status Date / Time amoxicillin trihydrate Allergy Nausea and Verified 09/09/17 12:25 [From Augmentin] Vomiting erythromycin base Allergy unkown Verified 09/09/17 12:25 [Erythromycin Base] fluocinonide Allergy unkown Verified 09/09/17 12:25 metformin Allergy Nausea and Verified 09/09/17 12:25 Vomiting Penicillins Allergy Nausea and Verified 09/09/17 12:25 Vomiting potassium clavulanate Allergy Nausea and Verified 09/09/17 12:25 [From Augmentin] Vomiting quinapril Allergy Cannot Verified 09/09/17 12:25 Remember rofecoxib Allergy unkown Verified 09/09/17 12:25 Sulfa (Sulfonamide Allergy Nausea and Verified 09/09/17 12:25 Antibiotics) Vomiting sulfamethoxazole Allergy Cannot Verified 09/09/17 12:25 [From Bactrim] Remember trimethoprim [From Bactrim] Allergy Cannot Verified 11/06/16 14:35 Remember Home Meds: Home Meds Nitroglycerin 0.4 mg SL ASDIRECTED PRN 10/10/13 [History] Rosuvastatin [Crestor] 20 mg PO DAILY 10/10/13 [History] Cranberry Extract [Cranberry] 500 mg PO DAILY 04/04/16 [History] Losartan Potassium 50 mg PO DAILY 04/04/16 [History] Metoprolol Succinate 75 mg PO BID 04/04/16 [History] Pantoprazole [ProTONIX] 40 mg PO DAILY 04/04/16 [History] SitaGLIPtin [Januvia] 100 mg PO DAILY 06/04/16 [History] glipiZIDE [Glucotrol XL] 10 mg PO DAILY 06/04/16 [History] Aspirin [Halfprin] 81 mg PO BRK 11/06/16 [History] Calcium Carb/Vitamin D3/Vit K1 [Viactiv Soft Chew] 1 tab PO DAILY 11/06/16 [ History] Donepezil [Aricept] 10 mg PO BEDTIME 11/06/16 [History] Acetaminophen 500 mg PO BID 09/09/17 [History] Fexofenadine [Criselda] 60 mg PO DAILY 09/09/17 [History] Furosemide [Lasix] 20 mg PO DAILY PRN 09/09/17 [History] Insulin Detemir [Levemir] 15 units SUBCUT DAILY 09/09/17 [History] Ketotifen Fumarate [Alaway] 1 drop EYEBOTH DAILY 09/09/17 [History] Montelukast [Singulair] 10 mg PO BEDTIME 09/09/17 [History] Past Medical History HEENT History: Reports: Cataract Cardiovascular History: Reports: Automatic Implantable Cardioverter Defibrillators, Bypass, CAD, Heart Failure, High Cholesterol, Hypertension Respiratory History: Reports: None Gastrointestinal History: Reports: GERD Other Gastrointestinal History: gallbladder removed Genitourinary History: Reports: UTI, Recurrent [place] History: Reports: None Musculoskeletal History: Reports: Arthritis Neurological History: Reports: None Psychiatric History: Reports: None, Dementia, Hallucinations Endocrine/Metabolic History: Reports: Diabetes, Type II, Other (See Below) (DKA) Hematologic History: Reports: Anemia Immunologic History: Reports: None Oncologic (Cancer) History: Reports: None Dermatologic History: Reports: None - Infectious Disease History Infectious Disease History: Reports: None - Past Surgical History HEENT Surgical History: Reports: Cataract Surgery Cardiovascular Surgical History: Reports: Coronary Artery Bypass, Pacer Musculoskeletal Surgical History: Reports: Other (See Below) Social & Family History - Family History Family Medical History: Unobtainable - Tobacco Use Smoking Status *Q: Unknown Ever Smoked Second Hand Smoke Exposure: No - Caffeine Use Caffeine Use: Reports: Coffee Other Caffeine Use: unknown - Recreational Drug Use Recreational Drug Use: No - Living Situation & Occupation Living situation: Reports: Assisted Living ED ROS GENERAL - Review of Systems Review Of Systems: ROS reveals no pertinent complaints other than HPI. ED EXAM GENERAL NO PERIP PULSE - Physical Exam Exam: See Below Exam Limited By: Altered Mental Status General Appearance: No Apparent Distress, Obtunded Eye Exam: Bilateral Eye: PERRL (2) Ears: Normal External Exam, Hearing Grossly Normal Nose: Normal Inspection, Normal Mucosa, No Blood Throat/Mouth: Normal Inspection, Normal Lips, Normal Voice, No Airway Compromise Head: Atraumatic, Normocephalic Neck: Normal Inspection, Supple, Non-Tender, Full Range of Motion Respiratory/Chest: No Respiratory Distress, Crackles (bases bilaterally) Cardiovascular: Normal Peripheral Pulses, Regular Rate, Rhythm, Systolic Murmur (+2-3), Other (pacemaker) GI/Abdominal: Normal Bowel Sounds, Soft, Non-Tender, No Organomegaly, No Distention, No Abnormal Bruit, No Mass (Female) Exam: Deferred Rectal (Female) Exam: Deferred Back Exam: Normal Inspection, Full Range of Motion Extremities: Normal Inspection, Normal Range of Motion, Non-Tender, No Pedal Edema, Normal Capillary Refill Neurological: Unresponsive Psychiatric: Other Skin Exam: Warm, Dry, Intact, Normal Color, No Rash Lymphatic: No Adenopathy EKG INTERPRETATION EKG Date: 09/09/17 Time: 13:01 Rhythm: Other (Atrial PACED) Course - Vital Signs Last Recorded V/S: Last Vital Signs Temp 97.6 F 09/09/17 14:46 Pulse 60 09/09/17 14:46 Resp 22 H 09/09/17 14:46 BP 173/59 H 09/09/17 14:46 Pulse Ox 96 09/09/17 14:46 - Orders/Labs/Meds Orders: Active Orders 24 hr Category Date Time Status EKG Documentation Completion [RC] STAT Care 09/09/17 12:30 Active Osman Catheter Insertion [Insert Urinary Catheter] [OM. Care 09/09/17 13:00 Ordered PC] Q24H Urinary Catheter Assessment [RC] ASDIRECTED Care 09/09/17 13:50 Active Sodium Chloride 0.9% [Normal Saline] 1,000 ml Med 09/09/17 13:16 Active IV .BOLUS Medication Orders Sodium Chloride (Normal Saline) 1,000 mls @ 75 mls/hr IV .BOLUS ONE Stop: 09/10/17 02:35 Last Admin: 12/08/17 13:19 Dose: 75 mls/hr Labs: Laboratory Tests 09/09/17 09/09/17 09/09/17 Range/Units 12:31 12:39 12:39 WBC 7.8 (5.0-10.0) 10^3/uL RBC 3.79 L (4.2-5.4) 10^6/uL Hgb 10.0 L (12.0-16.0) g/dL Hct 31.7 L (37.0-47.0) % MCV 83.6 (80-100) fL MCH 26.4 L (27.0-34.0) pg MCHC 31.5 L (33.0-35.0) g/dL Plt Count 210 (150-450) 10^3/uL Neut % (Auto) 77.0 H (42.2-75.2) % Lymph % (Auto) 9.9 L (20.5-50.1) % [place] % (Auto) 11.4 H (2-8) % Eos % (Auto) 1.3 (1.0-3.0) % Baso % (Auto) 0.4 (0.0-1.0) % Sodium 131 L (135-145) mmol/L Potassium 4.3 (3.6-5.0) mmol/L Chloride 95 L (101-111) mmol/L Carbon Dioxide 27.0 (21.0-31.0) mmol/L Anion Gap 13.3 BUN 19 H (7-18) mg/dL Creatinine 0.8 (0.6-1.3) mg/dL Est Cr Clr Drug Dosing TNP Estimated GFR (MDRD) > 60 BUN/Creatinine Ratio 23.75 Glucose 377 H (74-105) mg/dL POC Glucose 388 H (83-110) mg/dl Lactic Acid (0.5-2.2) mmol/L Calcium 8.9 (8.4-10.2) mg/dl Total Bilirubin 0.4 (0.2-1.0) mg/dL AST 15 (10-42) IU/L ALT 13 (10-60) IU/L Alkaline Phosphatase 54 (42-121) IU/L Troponin I < 0.02 (0.00-0.02) ng/ml Total Protein 6.4 L (6.7-8.2) g/dl Albumin 3.4 (3.2-5.5) g/dl Globulin 3.0 Albumin/Globulin Ratio 1.13 Urine Color (YELLOW) Urine Appearance (CLEAR) Urine pH (5.0-9.0) Ur Specific Bradley (1.005-1.030) Urine Protein (NEGATIVE) Urine Glucose (UA) (NEGATIVE) Urine Ketones (NEGATIVE) Urine Occult Blood (NEGATIVE) Urine Nitrite (NEGATIVE) Urine Bilirubin (NEGATIVE) Urine Urobilinogen (0.2-1.0) mg/dL Ur Leukocyte Esterase (NEGATIVE) Urine RBC /HPF Urine WBC (0-5/HPF) /HPF Ur Epithelial Cells /HPF Urine Bacteria (0-FEW/HPF) /HPF Urine Mucus /LPF Ketones 09/09/17 09/09/17 09/09/17 Range/Units 12:39 12:39 12:58 WBC (5.0-10.0) 10^3/uL RBC (4.2-5.4) 10^6/uL Hgb (12.0-16.0) g/dL Hct (37.0-47.0) % MCV (80-100) fL MCH (27.0-34.0) pg MCHC (33.0-35.0) g/dL Plt Count (150-450) 10^3/uL Neut % (Auto) (42.2-75.2) % Lymph % (Auto) (20.5-50.1) % [place] % (Auto) (2-8) % Eos % (Auto) (1.0-3.0) % Baso % (Auto) (0.0-1.0) % Sodium (135-145) mmol/L Potassium (3.6-5.0) mmol/L Chloride (101-111) mmol/L Carbon Dioxide (21.0-31.0) mmol/L Anion Gap BUN (7-18) mg/dL Creatinine (0.6-1.3) mg/dL Est Cr Clr Drug Dosing Estimated GFR (MDRD) BUN/Creatinine Ratio Glucose (74-105) mg/dL POC Glucose (83-110) mg/dl Lactic Acid 1.1 (0.5-2.2) mmol/L Calcium (8.4-10.2) mg/dl Total Bilirubin (0.2-1.0) mg/dL AST (10-42) IU/L ALT (10-60) IU/L Alkaline Phosphatase (42-121) IU/L Troponin I (0.00-0.02) ng/ml Total Protein (6.7-8.2) g/dl Albumin (3.2-5.5) g/dl Globulin Albumin/Globulin Ratio Urine Color Yellow (YELLOW) Urine Appearance Clear (CLEAR) Urine pH 5.5 (5.0-9.0) Ur Specific Bradley 1.010 (1.005-1.030) Urine Protein Negative (NEGATIVE) Urine Glucose (UA) 500 H (NEGATIVE) Urine Ketones Negative (NEGATIVE) Urine Occult Blood Negative (NEGATIVE) Urine Nitrite Negative (NEGATIVE) Urine Bilirubin Negative (NEGATIVE) Urine Urobilinogen 0.2 (0.2-1.0) mg/dL Ur Leukocyte Esterase Negative (NEGATIVE) Urine RBC Not seen /HPF Urine WBC Not seen (0-5/HPF) /HPF Ur Epithelial Cells Occasional /HPF Urine Bacteria Not seen (0-FEW/HPF) /HPF Urine Mucus Not seen /LPF Ketones Negative 09/09/17 Range/Units 13:56 WBC (5.0-10.0) 10^3/uL RBC (4.2-5.4) 10^6/uL Hgb (12.0-16.0) g/dL Hct (37.0-47.0) % MCV (80-100) fL MCH (27.0-34.0) pg MCHC (33.0-35.0) g/dL Plt Count (150-450) 10^3/uL Neut % (Auto) (42.2-75.2) % Lymph % (Auto) (20.5-50.1) % [place] % (Auto) (2-8) % Eos % (Auto) (1.0-3.0) % Baso % (Auto) (0.0-1.0) % Sodium (135-145) mmol/L Potassium (3.6-5.0) mmol/L Chloride (101-111) mmol/L Carbon Dioxide (21.0-31.0) mmol/L Anion Gap BUN (7-18) mg/dL Creatinine (0.6-1.3) mg/dL Est Cr Clr Drug Dosing Estimated GFR (MDRD) BUN/Creatinine Ratio Glucose (74-105) mg/dL POC Glucose 317 H (83-110) mg/dl Lactic Acid (0.5-2.2) mmol/L Calcium (8.4-10.2) mg/dl Total Bilirubin (0.2-1.0) mg/dL AST (10-42) IU/L ALT (10-60) IU/L Alkaline Phosphatase (42-121) IU/L Troponin I (0.00-0.02) ng/ml Total Protein (6.7-8.2) g/dl Albumin (3.2-5.5) g/dl Globulin Albumin/Globulin Ratio Urine Color (YELLOW) Urine Appearance (CLEAR) Urine pH (5.0-9.0) Ur Specific Bradley (1.005-1.030) Urine Protein (NEGATIVE) Urine Glucose (UA) (NEGATIVE) Urine Ketones (NEGATIVE) Urine Occult Blood (NEGATIVE) Urine Nitrite (NEGATIVE) Urine Bilirubin (NEGATIVE) Urine Urobilinogen (0.2-1.0) mg/dL Ur Leukocyte Esterase (NEGATIVE) Urine RBC /HPF Urine WBC (0-5/HPF) /HPF Ur Epithelial Cells /HPF Urine Bacteria (0-FEW/HPF) /HPF Urine Mucus /LPF Ketones Meds: Medications Generic Name Dose Route Start Last Admin Trade Name Freq PRN Reason Stop Dose Admin Sodium Chloride 1,000 mls @ 75 mls/hr 09/09/17 13:16 09/09/17 13:19 Normal Saline IV 09/10/17 02:35 75 mls/hr .BOLUS ONE Administration Discontinued Medications Generic Name Dose Route Start Last Admin Trade Name Freq PRN Reason Stop Dose Admin Insulin Human Regular 10 unit 09/09/17 13:16 Humulin R IV 09/09/17 13:17 ONETIME ONE Protocol - Radiology Interpretation Free Text/Narrative:: Head CT w/o contrast: No acute findings See rad report - Re-Assessments/Exams Free Text/Narrative Re-Assessment/Exam: 09/09/17 13:22 Patient now responding. Confused, unsure of surroundings. Oriented to person. 09/09/17 14:55 Patient sitting up in bed visiting. Still somewhat confused, but the patients son feels that if she gets back to [facility] in her familiar surroundings that she will improve. Departure - Departure Time of Disposition: 14:56 Disposition: DC/Tfer to [facility] Condition: Fair Clinical Impression: Hyperglycemia Dementia Qualifiers: Dementia type: unspecified type Dementia behavioral disturbance: without behavioral disturbance Qualified Code(s): F03.90 - Unspecified dementia without behavioral disturbance - Discharge Information Instructions: Type 2 Diabetes Mellitus, Adult, [id number], Hyperglycemia, [id number] Forms: ED Department Discharge Additional Instructions: Follow up with your primary care facility next week to evaluate Diabetes management. - My Orders Last 24 Hours: My Active Orders 09/09/17 12:30 EKG Documentation Completion [RC] STAT 09/09/17 13:00 Osman Catheter Insertion [Insert Urinary Catheter] [OM.PC] Q24H 09/09/17 13:16 Sodium Chloride 0.9% [Normal Saline] 1,000 ml IV .BOLUS 09/09/17 13:50 Urinary Catheter Assessment [RC] ASDIRECTED - Assessment/Plan Last 24 Hours: My Active Orders 09/09/17 12:30 EKG Documentation Completion [RC] STAT 09/09/17 13:00 Osman Catheter Insertion [Insert Urinary Catheter] [OM.PC] Q24H 09/09/17 13:16 Sodium Chloride 0.9% [Normal Saline] 1,000 ml IV .BOLUS 09/09/17 13:50 Urinary Catheter Assessment [RC] ASDIRECTED
[2017-09-09 13:05] LABS: CHLORIDE,CL 95 mmol/L (101-111); SODIUM,NA 131 mmol/L (135-145)
[2017-09-09] MEDS ORDERED: Insulin Regular, Human 100 Units/ML 3 ML Vial IV ONE (13:16)
[2017-09-09] MEDS ORDERED: Sodium Chloride 0.9% 1,000 ML IV ONE (13:16)
--- NOTE | 2017-09-09 14:30 | CT ---
Clinical history: 89-year-old hypertensive diabetic (blood sugar >500) female with increased confusio n. No trauma. Scan technique: Volume acquisition of data emergency unenhanced CT scan of the head and brain obtaine d with patient lying supine on the Siemens multi slice CT scanner [place], [place]. All data archived in the PACS system for storage, reformatting and study (bone/brain wi ndows). Interpretation: Uniformly thick bony calvarium and symmetric clear pneumatization of the mastoid and paranasal sinuses. Severe but symmetric cerebral cortical atrophy with underlying mirror-image normal ventricular system . 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 No new signs of supratentorial or posterior fossa mass les ion. No hydrocephalus. Normal cerebellum and brainstem. No sign of acute intracerebral/intraventricular/subarachnoid bleed. (Punctate basal ganglia calcifica tions) No new abnormal extracerebral/intracranial epidural or subdural hematoma. CONCLUSION: No acute new intracranial abnormality (compared to April 2017).
[2017-09-09 14:47] VITALS: BP 173/59
--- NOTE | 2017-09-13 12:18 | EKG ---
09/09/2017 - MARILYN BRIAN ANN - FINDINGS: A 12-lead EKG shows atrial paced rhythm and noted to have paced complex. Heart rate of 61. [facility] /[id number]
== END 2017-09-09 15:15 ==
LOC: DL.ED 12:20
DX: E11.65 Type 2 diabetes mellitus with hyperglycemia (principal); F03.90 Unspecified dementia, unspecified severity, without behavioral disturbance, psychotic disturbance, mood disturbance, and anxiety; I10 Essential (primary) hypertension; K21.9 Gastro-esophageal reflux disease without esophagitis; Z88.0 Allergy status to penicillin; Z88.1 Allergy status to other antibiotic agents; Z88.2 Allergy status to sulfonamides; Z88.8 Allergy status to other drugs, medicaments and biological substances; Z79.82 Long term (current) use of aspirin; Z79.4 Long term (current) use of insulin; Z79.899 Other long term (current) drug therapy
CPT/HCPCS: 36415; 51702; 70450; 80053; 81001; 82009; 82962; 83605; 84484; 85025; 93005; 99285; J7030; 93010; 99284